=== PATIENT | male | born 1985 | race African-American/Black ===

== ENCOUNTER 2017-03-14 06:05 | Emergency (ER) | payer MEDICAID ==
[~2017-03-14] VITALS: Ht 175.3 cm; Wt 80.0 kg
[2017-03-14] MEDS ORDERED: KETOROLAC 60MG/2ML VIAL IM ONE (10:15)
[2017-03-14 11:02] VITALS: BP 126/69
== END 2017-03-14 11:26 | disposition home or self-care (01) ==
LOC: ER 07:11
DX: M54.12 Radiculopathy, cervical region (principal); F17.210 Nicotine dependence, cigarettes, uncomplicated; F12.10 Cannabis abuse, uncomplicated
CPT/HCPCS: 72040; 96372; 99284; J1885; Z7610

== ENCOUNTER 2017-07-08 05:57 | Emergency (ER) | payer MEDICAID ==
[~2017-07-08] VITALS: Ht 175.3 cm; Wt 85.0 kg
[2017-07-08] MEDS ORDERED: IBUPROFEN 600MG TABLET PO ONE (07:15)
[2017-07-08 07:45] VITALS: BP 126/77
== END 2017-07-08 07:45 | disposition home or self-care (01) ==
LOC: ER 06:14
DX: M62.830 Muscle spasm of back (principal); F17.200 Nicotine dependence, unspecified, uncomplicated; F12.10 Cannabis abuse, uncomplicated
CPT/HCPCS: 99283; Z7610